=== PATIENT | female | born 1980 | race Caucasian/White ===

== ENCOUNTER → 2017-02-04 | Outpatient (CLI) | payer BC ==
[~2017-02-04] MED LIST: ANT25 PO; MULT-506 PO; OMEG10007 PO; ONDA4TAB46 PO
== END | disposition home or self-care (01) ==
LOC: C.PAPS 08:17
PROVIDERS: ATTEND Physician Assistant
DX: Z01.419 Encounter for gynecological examination (general) (routine) without abnormal findings (principal)

== ENCOUNTER → 2017-05-12 | Outpatient (CLI) | payer BC ==
[~2017-05-12] MED LIST changes: +GADAVIST IV PRN
--- NOTE | 2017-05-12 10:03 | DIAGNOSTIC IMAGING REPORT ---
BRAIN COMBO FOR MS HISTORY: Demyelinating disorder. Abnormal MRI. R93.8 Abnormal MRIf/u MRI in Nov TECHNIQUE: Multiplanar multisequence MRI of the brain was performed both before and after the intravenous administration of contrast. COMPARISON STUDY: 05/08/2016 FINDINGS: Diffusion-weighted images show no evidence for an acute ischemic event. Coronal FLAIR images demonstrate several foci of increased signal within the periventricular deep white matter regions. These are unchanged from the prior exam with no evidence for new interval or progressive process. Ventricular system is midline. Sella and parasellar regions are within normal limits. Postcontrast images show evidence for a small benign appearing venous angioma right superior frontal lobe region. There is no evidence for edematous change, hemorrhage, or mass effect. This is considered an incidental finding. No additional enhancing foci identified. IMPRESSION: 1. Unchanged foci of increased signal throughout both cerebral hemispheres suspect for a demyelinating disorder. 2. No evidence for abnormal postcontrast enhancement. 3. Small venous angioma superior right frontal lobe felt to be of no clinical significance. The above report was generated using voice recognition software. It may contain grammatical, syntax or spelling errors. Electronically signed by: Torrey Peacock M.D. 05/12/2017 10:02 AM Dictated Date/Time: 05/12/2017 9:57 AM
== END | disposition home or self-care (01) ==
LOC: C.MRI 08:49
PROVIDERS: ATTEND Psychiatry & Neurology Neurology
DX: R93.8 Abnormal findings on diagnostic imaging of other specified body structures (principal)